=== PATIENT | female | born 1955 | race Caucasian/White ===

== ENCOUNTER 2019-10-22 15:03 | Outpatient (CLI) | payer OTHER | END 2019-10-22 23:59 | disposition home or self-care (01) | LOC: STAR 15:03 | PROVIDERS: ATTEND Anesthesiology | DX: Z01.818 Encounter for other preprocedural examination (principal); Z11.59 Encounter for screening for other viral diseases | CPT/HCPCS: 36415; 87635 ==

== ENCOUNTER 2019-10-25 11:49 | Day surgery (SDC) | payer OTHER ==
[~2019-10-25] VITALS: Ht 147.3 cm; Wt 55.1 kg
[2019-10-25] MEDS ORDERED: LACTATED RINGERS 1,000 ML IV SCH (12:35)
[2019-10-25] MEDS ORDERED: LOVA20TA2 PO (12:40)
[2019-10-25] MEDS ORDERED: METH40TA3 PO (12:40)
[2019-10-25] MEDS ORDERED: AMIT25TA PO (12:40)
[2019-10-25] MEDS ORDERED: ALPR0.5T6 PO (12:40)
[2019-10-25] MEDS ORDERED: LISI-170 PO (12:40)
[2019-10-25] MEDS ORDERED: GEMF600T8 PO (12:40)
[2019-10-25] MEDS ORDERED: OMEP40CA42 PO (12:40)
[2019-10-25] MEDS ORDERED: CHLORHEXIDINE 15 ML UDC MM ONE (13:00)
[2019-10-25 13:07] VITALS: BP 90/62
[2019-10-25 13:26] LABS: ALBUMIN 3.8 g/dL (3.4-5.0); ANION GAP 4 mmol/L (5-15); CHLORIDE 107 mmol/L (98-107)
[2019-10-25 13:33] LABS: ALANINE AMINOTRANSFERASE 21 U/L (12-78); ALKALINE PHOSPHATASE 117 U/L (45-117); BILIRUBIN,TOTAL 0.2 mg/dL (0.2-1.0); CREATININE 1.25 mg/dL (0.55-1.02); TOTAL PROTEIN 7.9 g/dL (6.4-8.2)
[2019-10-25] MEDS ORDERED: FENTANYL PF 100 MCG/2ML ONE ×2 (15:03→17:38)
[2019-10-25] MEDS ORDERED: MIDAZOLAM 1 MG/ML, 2ML ONE (15:03)
[2019-10-25] MEDS ORDERED: MEPERIDINE/PF 25MG/0.5ML IVPush PRN (15:30)
[2019-10-25] MEDS ORDERED: HYDROmorphone 1 MG/ML, 1ML INJ IVPush PRN (15:30)
[2019-10-25] MEDS ORDERED: PROMETHAZINE 25 MG/ML, 1ML IVPush PRN (15:30)
[2019-10-25] MEDS ORDERED: OXYcodone 5 MG/5 ML ORAL.SOL UDC PO PRN (15:30)
[2019-10-25] MEDS ORDERED: FENTANYL PF 100 MCG/2ML IV PRN (15:30)
[2019-10-25] MEDS ORDERED: SUGAMMADEX 200 MG/2 ML IVPush ONE (16:26)
[2019-10-25] MEDS ORDERED: ROCURONIUM 10 MG/ML,10ML ONE (16:26)
[2019-10-25] MEDS ORDERED: SUCCINYLCHOLINE 20 MG/ML, 10ML ONE (16:26)
[2019-10-25] MEDS ORDERED: ONDANSETRON 2MG/ML, 2ML ONE (16:26)
[2019-10-25] MEDS ORDERED: DEXAMETHASONE 4 MG/ML, 1ML ONE (16:26)
[2019-10-25] MEDS ORDERED: PROPOFOL 10 MG/ML, 20ML ONE (16:26)
[2019-10-25] MEDS ORDERED: INDOMETHACIN 50 MG SUPP.RECT ONE (17:39)
[2019-10-25] MEDS ORDERED: GLUCAGON 1 MG ONE (17:51)
== END 2019-10-25 19:00 | disposition home or self-care (01) ==
LOC: OUT 11:49
PROVIDERS: ATTEND Internal Medicine Gastroenterology
DX: R10.9 Unspecified abdominal pain (principal); K83.1 Obstruction of bile duct; K86.2 Cyst of pancreas; K31.89 Other diseases of stomach and duodenum; F32.9 Major depressive disorder, single episode, unspecified; E78.5 Hyperlipidemia, unspecified; I10 Essential (primary) hypertension; F41.9 Anxiety disorder, unspecified; F17.210 Nicotine dependence, cigarettes, uncomplicated; F15.90 Other stimulant use, unspecified, uncomplicated; Z88.1 Allergy status to other antibiotic agents; Z90.49 Acquired absence of other specified parts of digestive tract; Z98.890 Other specified postprocedural states; Z79.899 Other long term (current) drug therapy
CPT/HCPCS: 36415; 43262; 43274; 74328; 80053; 93005; C1769; C2625; J0330; J1100; J1610; J2250; J2405; J2704; J3010; J7120

== ENCOUNTER 2020-01-31 07:17 | Day surgery (SDC) | payer OTHER ==
[~2020-01-31] VITALS: Ht 147.3 cm; Wt 56.0 kg
[~2020-01-31 07:17] MED LIST: ALPR0.5T6 PO; AMIT25TA PO; GEMF600T8 PO; LISI-170 PO; LOVA20TA2 PO; METH40TA3 PO; OMEP40CA42 PO
[2020-01-31] MEDS ORDERED: CHLORHEXIDINE 15 ML UDC MM ONE (08:00)
[2020-01-31] MEDS ORDERED: LIDOCAINE-MPF 1%, 2ML INFIL ONE (08:00)
[2020-01-31] MEDS ORDERED: LACTATED RINGERS 1,000 ML IV SCH (08:00)
[2020-01-31 08:04] VITALS: BP 95/66
[2020-01-31 08:37] LABS: ALBUMIN 3.7 g/dL (3.4-5.0); ANION GAP 5 mmol/L (5-15); CALCIUM 9.9 mg/dL (8.5-10.1); CHLORIDE 106 mmol/L (98-107)
[2020-01-31 08:41] LABS: ALANINE AMINOTRANSFERASE 15 U/L (12-78); ALKALINE PHOSPHATASE 105 U/L (45-117); BILIRUBIN,TOTAL 0.2 mg/dL (0.2-1.0); CREATININE 1.18 mg/dL (0.55-1.02); TOTAL PROTEIN 7.6 g/dL (6.4-8.2)
[2020-01-31] MEDS ORDERED: PROPOFOL 50 ML ONE (09:47)
[2020-01-31] MEDS ORDERED: SUCCINYLCHOLINE 20 MG/ML, 10ML ONE (10:30)
[2020-01-31] MEDS ORDERED: OMNIPAQUE 350 MG/ML, 50 ML BOTTLE ONE (10:50)
[2020-01-31] MEDS ORDERED: FENTANYL PF 100 MCG/2ML IV PRN (11:30)
[2020-01-31] MEDS ORDERED: MEPERIDINE/PF 25MG/0.5ML IVPush PRN (11:30)
[2020-01-31] MEDS ORDERED: ACETAMINOPHEN 325 MG TABLET PO PRN (11:30)
[2020-01-31] MEDS ORDERED: DIAZEPAM 5 MG/ML, 2ML IVPush PRN (11:30)
[2020-01-31] MEDS ORDERED: ONDANSETRON 2MG/ML, 2ML IVPush PRN (11:30)
[2020-01-31] MEDS ORDERED: INDOMETHACIN 50 MG SUPP.RECT PR STA (11:48)
[2020-01-31] MEDS ORDERED: INDOMETHACIN 50 MG SUPP.RECT ONE (11:50)
[2020-01-31] MEDS ORDERED: PANTOPRAZOLE 40 MG IV IVPush ONE (12:00)
== END 2020-01-31 14:45 | disposition home or self-care (01) ==
LOC: OUT 07:17
PROVIDERS: ATTEND Internal Medicine Gastroenterology
DX: T85.528A Displacement of other gastrointestinal prosthetic devices, implants and grafts, initial encounter (principal); I10 Essential (primary) hypertension; E83.52 Hypercalcemia; E78.5 Hyperlipidemia, unspecified; F41.9 Anxiety disorder, unspecified; Z79.899 Other long term (current) drug therapy; Z88.1 Allergy status to other antibiotic agents; Z90.49 Acquired absence of other specified parts of digestive tract; Y83.8 Other surgical procedures as the cause of abnormal reaction of the patient, or of later complication, without mention of misadventure at the time of the procedure
CPT/HCPCS: 36415; 43275; 74018; 74330; 80053; 87635; 93005; C1769; C9113; J0330; J2704; J7120; Q9967

== ENCOUNTER 2020-01-31 19:49 | Inpatient (IN) | payer OTHER ==
[~2020-01-31] VITALS: Ht 147.3 cm; Wt 56.0 kg
[2020-01-31] MEDS ORDERED: SODIUM CHLORIDE FLUSH 10ML SYR IVF ONE (20:00)
[2020-01-31] MEDS ORDERED: ONDANSETRON 2MG/ML, 2ML IVPush ONE (20:00)
[2020-01-31] MEDS ORDERED: ONDANSETRON 2MG/ML, 2ML ONE (20:42)
[2020-01-31] MEDS ORDERED: MORPHINE SULFATE 4 MG/ML, 1ML ONE (20:42)
[2020-01-31 20:45] LABS: BASOPHILS % (AUTO) 0 % (0-1); EOSINOPHILS % (AUTO) 0 % (1-7); LYMPHOCYTES % (AUTO) 8 % (22-44); MEAN CORPUSCULAR HEMOGLOBIN 29.3 pg (27.0-34.8); MEAN CORPUSCULAR HGB CONC 32.1 g/dL (32.4-35.8); MEAN PLATELET VOLUME 7.7 fL (7.4-10.4); MONOCYTES % (AUTO) 6 % (2-9); NEUTROPHILS % (AUTO) 86 % (42-75); PLATELET COUNT 282 x10^3/uL (130-400); RED BLOOD COUNT 4.94 x10^6/uL (3.82-5.3); RED CELL DISTRIBUTION WIDTH 14.8 % (9.6-15.2)
[2020-01-31 20:51] LABS: MD NO
[2020-01-31 20:52] LABS: ANION GAP 5 mmol/L (5-15); CALCIUM 9.8 mg/dL (8.5-10.1); CHLORIDE 105 mmol/L (98-107); CREATININE 1.11 mg/dL (0.55-1.02)
[2020-01-31 20:53] LABS: ALANINE AMINOTRANSFERASE 19 U/L (12-78); ALBUMIN 3.8 g/dL (3.4-5.0)
[2020-01-31 20:55] LABS: ALKALINE PHOSPHATASE 113 U/L (45-117); BILIRUBIN,TOTAL 0.2 mg/dL (0.2-1.0); TOTAL PROTEIN 7.7 g/dL (6.4-8.2)
--- NOTE | 2020-01-31 21:27 | NUR ---
Multiple attempts by this RN for IV access with US machine. Secondary RN at bedside attempting IV access
--- NOTE | 2020-01-31 22:08 | NUR ---
Second and third RN to bedside to assist in gaining IV access, unable to establish PIV
[2020-01-31] MEDS ORDERED: SODIUM CHLORIDE 0.9% 1,000ML IVBOLUS ONE (22:30)
--- NOTE | 2020-01-31 23:36 | NUR ---
DR ADORNO AT BEDSIDE FOR CENTRAL LINE PLACEMENT AT THIS TIME
--- NOTE | 2020-02-01 00:09 | NUR ---
US at bedside
[2020-02-01] MEDS: MORPHINE SULFATE 4 MG/ML, 1ML IVPush PRN ×2 (00:10→01:04)
--- NOTE | 2020-02-01 00:15 | NUR ---
US at bedside. Delay d/t pt care needs. Provider aware
--- NOTE | 2020-02-01 00:57 | NUR ---
HOSPITALIST AT BEDSIDE FOR ADMIT AT THIS TIME
[2020-02-01] MEDS ORDERED: MORPHINE SULFATE 4 MG/ML, 1ML ONE ×3 (00:59→05:16)
--- NOTE | 2020-02-01 01:04 | NUR ---
PT C/O PAIN PT MEDICATED PER MAR FOR PAIN AT THIS TIME. PT TOLERATED WELL NADN
--- NOTE | 2020-02-01 01:21 | NUR ---
Ambulated to bathroom independently, steady gait
--- NOTE | 2020-02-01 01:50 | NUR ---
BREAK RN: PT RESTING ON BANG HAYNES AT THIS TIME
[2020-02-01] MEDS ORDERED: HEPARIN 5,000 UNITS/ML, 1ML ONE (01:56)
[2020-02-01] MEDS ORDERED: HYDROcodone/APAP 5/325 TABLET ONE ×2 (01:57→02:43)
[2020-02-01] MEDS ORDERED: SODIUM CHLORIDE 0.9% 1,000 ML IV SCH (02:00)
[2020-02-01] MEDS ORDERED: IBUPROFEN 600 MG TABLET PO PRN (02:00)
[2020-02-01] MEDS: HEPARIN 5,000 UNITS/ML, 1ML SQ SCH ×3 (02:02→20:23)
[2020-02-01] MEDS: HYDROcodone/APAP 5/325 TABLET PO PRN ×3 (02:02→20:23)
--- NOTE | 2020-02-01 02:03 | NUR ---
PT MEDICATED PER MAR FOR PAIN AT THIS TIME.
--- NOTE | 2020-02-01 02:49 | NUR ---
PT MEDICATED PER MAR FOR PAIN AT THIS TIME
[2020-02-01] MEDS ORDERED: ONDANSETRON 2MG/ML, 2ML ONE (04:30)
[2020-02-01] MEDS: morphine SULFATE 10 MG/ML, 1ML IVPush PRN ×4 (04:43→23:05)
[2020-02-01] MEDS: ONDANSETRON 2MG/ML, 2ML IVPush PRN ×2 (04:44→20:22)
--- NOTE | 2020-02-01 05:26 | NUR ---
Pt continues to c/o 12/28 abd pain. Unable to admin additional pain meds at this time. Voicemail left with MD Murphy
[2020-02-01] MEDS ORDERED: HYDROmorphone 2 MG/ML, 1ML IVPush ONE (06:00)
[2020-02-01] MEDS ORDERED: HYDROmorphone 2 MG/ML, 1ML ONE ×2 (06:06→08:32)
[2020-02-01 07:10] LABS: BASOPHILS % (AUTO) 1 % (0-1); EOSINOPHILS % (AUTO) 0 % (1-7); LYMPHOCYTES % (AUTO) 13 % (22-44); MEAN CORPUSCULAR HEMOGLOBIN 29.7 pg (27.0-34.8); MEAN CORPUSCULAR HGB CONC 32.6 g/dL (32.4-35.8); MEAN PLATELET VOLUME 7.5 fL (7.4-10.4); MONOCYTES % (AUTO) 5 % (2-9); NEUTROPHILS % (AUTO) 81 % (42-75); PLATELET COUNT 262 x10^3/uL (130-400); RED BLOOD COUNT 5.01 x10^6/uL (3.82-5.3); RED CELL DISTRIBUTION WIDTH 14.8 % (9.6-15.2)
[2020-02-01 07:20] LABS: ALANINE AMINOTRANSFERASE 14 U/L (12-78); ALBUMIN 3.1 g/dL (3.4-5.0); ANION GAP 8 mmol/L (5-15); CHLORIDE 109 mmol/L (98-107); CREATININE 0.96 mg/dL (0.55-1.02); MD NO
[2020-02-01 07:23] LABS: ALKALINE PHOSPHATASE 86 U/L (45-117); BILIRUBIN,TOTAL 0.4 mg/dL (0.2-1.0); TOTAL PROTEIN 6.6 g/dL (6.4-8.2)
[2020-02-01] MEDS ORDERED: LISINOPRIL 20 MG TABLET ONE (07:43)
[2020-02-01] MEDS ORDERED: NICOTINE 14MG/24 HR PATCH.TD24 ONE (07:44)
--- NOTE | 2020-02-01 07:53 | NUR ---
PT CONTINUES TO CALL FOR PAIN MEDICATION, DISSCUSSED WITH PT, WILL BE CALLED AND HAS ALREADY HAD MESSAGE LEFT FOR ORDERS FOR PAIN CONTROL. VSS Addendum: 02/01/20 at 0756 by ALMA DELIA ORDERS NOW RECIEVED, AWAITING PHARM VERIFICATION
[2020-02-01] MEDS ORDERED: HYDROmorphone 1 MG/ML, 1ML INJ IV PRN (08:00)
[2020-02-01] MEDS ORDERED: MAGNESIUM SULFATE PMX 2GM/50ML 50 ML IV ONE (08:00)
[2020-02-01] MEDS: GEMFIBROZIL 600 MG TABLET PO SCH (09:15)
[2020-02-01] MEDS: LISINOPRIL 20 MG TABLET PO SCH (09:15)
[2020-02-01] MEDS: OMEPRAZOLE 20 MG CAPSULE.DR PO SCH (09:18)
[2020-02-01] MEDS: NICOTINE 14MG/24 HR PATCH.TD24 TD SCH (09:18)
[2020-02-01] MEDS: METHADONE INTENSOL 10 MG/ML ORAL CONC PO SCH (09:18)
--- NOTE | 2020-02-01 09:20 | NUR ---
PT ASSISTED WITH BEDPAN USE, PT MEDICATED PER MAR, VSS, GIVEN BLANKETS FOR COMFORT.
[2020-02-01] MEDS ORDERED: MAGNESIUM SULFATE PMX 2GM/50ML 50 ML ONE (12:23)
--- NOTE | 2020-02-01 14:00 | NUR ---
UPDATED ON POC PER PT REQUEST. MANNY HARRIS IN TO EVAL PT.
--- NOTE | 2020-02-01 16:01 | NUR ---
PT RESTING ON GURNANCY, VSS, NAD NOTED AT THIS TIME.
--- NOTE | 2020-02-01 17:15 | NUR ---
REPORT GIVEN TO JACKY CUELLAR FOR ROOM 441
--- NOTE | 2020-02-01 17:29 | NUR ---
REPORT TO RECIEVING RN
[2020-02-01] MEDS: SODIUM CHLORIDE 0.9% 1,000 ML IV SCH ×2 (18:23→23:04)
[2020-02-01 19:00] VITALS: BP 100/66
[2020-02-01] MEDS: AMITRIPTYLINE 25 MG TABLET PO SCH (20:22)
[2020-02-01] MEDS ORDERED: LOVASTATIN 20 MG TABLET PO SCH (21:00)
[2020-02-02 00:35] VITALS: BP 94/62
[2020-02-02] MEDS: morphine SULFATE 10 MG/ML, 1ML IVPush PRN ×2 (03:54→08:07)
[2020-02-02] MEDS: ONDANSETRON 2MG/ML, 2ML IVPush PRN (03:54)
[2020-02-02] MEDS: SODIUM CHLORIDE 0.9% 1,000 ML IV SCH ×3 (03:55→12:59)
[2020-02-02 05:15] LABS: ANION GAP 8 mmol/L (5-15); CALCIUM 7.7 mg/dL (8.5-10.1); CHLORIDE 114 mmol/L (98-107)
[2020-02-02 05:20] LABS: CHOL/HDL RATIO 3.1; CHOLESTEROL, TOTAL 95 mg/dL (140-239); CREATININE 0.86 mg/dL (0.55-1.02); HDL CHOL % 33 % (28-40); HDL CHOLESTEROL (DIRECT) 31 mg/dL (40-60); LDL CHOLESTEROL,CALCULATED 36 mg/dL (54-169); LDL/HDL RATIO 1.2 (0.5-3.0); TRIGLYCERIDES 139 mg/dL (50-200); VLDL CHOLESTEROL 28 mg/dL (0-25)
[2020-02-02 05:24] LABS: BASOPHILS % (AUTO) 0 % (0-1); EOSINOPHILS % (AUTO) 0 % (1-7); LYMPHOCYTES % (AUTO) 18 % (22-44); MEAN CORPUSCULAR HEMOGLOBIN 29.7 pg (27.0-34.8); MEAN PLATELET VOLUME 7.8 fL (7.4-10.4); MONOCYTES % (AUTO) 5 % (2-9); NEUTROPHILS % (AUTO) 77 % (42-75); PLATELET COUNT 229 x10^3/uL (130-400); RED BLOOD COUNT 4.41 x10^6/uL (3.82-5.3); RED CELL DISTRIBUTION WIDTH 15.1 % (9.6-15.2)
[2020-02-02 05:38] LABS: MD NO
[2020-02-02] MEDS: HEPARIN 5,000 UNITS/ML, 1ML SQ SCH ×3 (05:47→20:16)
[2020-02-02] MEDS ORDERED: METHADONE 5 MG TABLET ONE (07:57)
[2020-02-02] MEDS ORDERED: METHADONE 10 MG TABLET ONE (07:58)
[2020-02-02] MEDS: GEMFIBROZIL 600 MG TABLET PO SCH (08:04)
[2020-02-02] MEDS: OMEPRAZOLE 20 MG CAPSULE.DR PO SCH (08:04)
[2020-02-02] MEDS: LISINOPRIL 20 MG TABLET PO SCH (08:05)
[2020-02-02] MEDS: NICOTINE 14MG/24 HR PATCH.TD24 TD SCH (08:06)
[2020-02-02] MEDS: METHADONE INTENSOL 10 MG/ML ORAL CONC PO SCH (08:08)
[2020-02-02 08:54] VITALS: BP 89/60
[2020-02-02] MEDS ORDERED: NALOXONE 0.4 MG/ML, 1ML IVPush ONE (13:30)
[2020-02-02] MEDS ORDERED: SODIUM CHLORIDE 0.9%, 500ML IVBOLUS ONE (13:30)
[2020-02-02] MEDS ORDERED: NALOXONE 1 MG/ML, 2ML ONE (13:42)
[2020-02-02 14:15] LABS: BASOPHILS % (AUTO) 0 % (0-1); EOSINOPHILS % (AUTO) 0 % (1-7); LYMPHOCYTES % (AUTO) 19 % (22-44); MEAN CORPUSCULAR HEMOGLOBIN 29.5 pg (27.0-34.8); MEAN CORPUSCULAR HGB CONC 32.2 g/dL (32.4-35.8); MEAN PLATELET VOLUME 7.9 fL (7.4-10.4); MONOCYTES % (AUTO) 4 % (2-9); NEUTROPHILS % (AUTO) 77 % (42-75); PLATELET COUNT 266 x10^3/uL (130-400); RED BLOOD COUNT 4.45 x10^6/uL (3.82-5.3); RED CELL DISTRIBUTION WIDTH 14.9 % (9.6-15.2)
[2020-02-02 14:19] LABS: MD NO
[2020-02-02 14:25] LABS: ALANINE AMINOTRANSFERASE 13 U/L (12-78); ALBUMIN 2.1 g/dL (3.4-5.0); ANION GAP 7 mmol/L (5-15); CALCIUM 8.2 mg/dL (8.5-10.1); CHLORIDE 112 mmol/L (98-107); CREATININE 1.23 mg/dL (0.55-1.02); INTERNATIONAL NORMALIZED RATIO 1.15 (0.93-1.1); PROTHROMBIN TIME 12.2 Seconds (9.6-11.5)
[2020-02-02 14:29] LABS: ALKALINE PHOSPHATASE 61 U/L (45-117); BILIRUBIN,TOTAL 0.5 mg/dL (0.2-1.0); TROPONIN I < 0.015 ng/mL (0.000-0.045)
[2020-02-02] MEDS ORDERED: LACTATED RINGERS 1,000 ML IV SCH (14:30)
[2020-02-02] MEDS ORDERED: LACTATED RINGERS 1,000 ML IVBOLUS ONE (14:30)
[2020-02-02] MEDS ORDERED: PROPOFOL 100 ML IV PRN (15:00)
[2020-02-02] MEDS: MEROPENEM 1 GM in SODIUM CHLORIDE 0.9% 100 ML IV SCH ×2 (15:07→22:34)
[2020-02-02] MEDS ORDERED: BISACODYL 10 MG SUPP PR PRN (16:30)
[2020-02-02] MEDS ORDERED: SENNA/DOCUSATE TABLET NG PRN (16:30)
[2020-02-02] MEDS ORDERED: LIDOCAINE-MPF 1%, 2ML ENDO PRN (16:30)
[2020-02-02] MEDS ORDERED: LACTULOSE 20 GM/30 ML UDC NG PRN (16:30)
[2020-02-02] MEDS ORDERED: SENNA 176 MG/5 ML ORAL SOL NG PRN (16:30)
[2020-02-02] MEDS ORDERED: PHARMACY MAY ADJ FOR RENAL FX MC SCH (16:30)
--- NOTE | 2020-02-02 16:48 | NUR ---
TF goal if needed: Promote w/ end goal rate @45mL/hr (on propofol) or 55mL/hr (off propofol). Addendum: 02/02/20 at [address] Amended: Links added.
[2020-02-02] MEDS ORDERED: OMNIPAQUE 350 MG/ML, 100ML BOTTLE ONE (17:54)
[2020-02-02] MEDS: SODIUM BICARBONATE 8.4% 150 MEQ in DEXTROSE 5% 1,000 ML IV SCH (17:56)
[2020-02-02] MEDS ORDERED: SUCCINYLCHOLINE 20 MG/ML, 10ML ONE (18:39)
[2020-02-02] MEDS ORDERED: ETOMIDATE 20 MG/10 ML ONE (18:39)
[2020-02-02] MEDS ORDERED: PROPOFOL 10 MG/ML, 100ML IV ONE (18:39)
[2020-02-02] MEDS ORDERED: ROCURONIUM 10MG/ML,5ML ONE (18:39)
[2020-02-02] MEDS ORDERED: SODIUM CHLORIDE 0.9% 1,000ML IVBOLUS ONE (19:00)
[2020-02-02 20:00] VITALS: BP 107/58
[2020-02-02] MEDS: FENTANYL PF 1,000 MCG in SODIUM CHLORIDE 0.9% 80 ML IV PRN (20:06)
[2020-02-02] MEDS ORDERED: AMITRIPTYLINE 75 MG TABLET ONE (20:07)
[2020-02-02] MEDS: AMITRIPTYLINE 25 MG TABLET PO SCH (20:16)
[2020-02-02] MEDS: NOREPINEPHRINE 8 MG in SODIUM CHLORIDE 0.9% 242 ML IV PRN (21:36)
[2020-02-02] MEDS: ACETAMINOPHEN 325 MG TABLET PO PRN (22:50)
[2020-02-03] MEDS: SODIUM BICARBONATE 8.4% 150 MEQ in DEXTROSE 5% 1,000 ML IV SCH (01:00)
[2020-02-03 01:10] LABS: MICROSCOPIC AUTO
[2020-02-03 02:02] VITALS: BP 85/45
[2020-02-03 03:26] LABS: ALANINE AMINOTRANSFERASE 12 U/L (12-78); ALBUMIN 1.6 g/dL (3.4-5.0); ANION GAP 5 mmol/L (5-15); CALCIUM 7.4 mg/dL (8.5-10.1); CHLORIDE 109 mmol/L (98-107); CREATININE 1.02 mg/dL (0.55-1.02)
[2020-02-03 03:28] LABS: ALKALINE PHOSPHATASE 63 U/L (45-117); BILIRUBIN,TOTAL 0.2 mg/dL (0.2-1.0); TOTAL PROTEIN 4.8 g/dL (6.4-8.2)
[2020-02-03 03:31] LABS: MEAN CORPUSCULAR HEMOGLOBIN 29.8 pg (27.0-34.8); MEAN CORPUSCULAR HGB CONC 32.6 g/dL (32.4-35.8); PLATELET COUNT 234 x10^3/uL (130-400)
[2020-02-03 04:40] LABS: MD YES
[2020-02-03 04:42] LABS: ANISOCYTOSIS 1+; BAND#(MANUAL) 0.26 x10^3/uL; BANDS%(MANUAL) 6 % (0-7); EOS#(MANUAL) 0.39 x10^3/uL (0.0-0.4); EOS% (MANUAL) 9 % (1-7); LYMPH#(MANUAL) 0.86 x10^3/uL (1-3.4); LYMPHS% (MANUAL) 20 % (22-44); METAMYELOCYTES# (MANUAL) 0.13 x10^3/uL (0-0); METAMYELOCYTES% (MANUAL) 3 % (0-1); MONOS#(MANUAL) 0.13 x10^3/uL (0.3-2.7); MONOS% (MANUAL) 3 % (2-9); MYELOCYTES# (MANUAL) 0.09 x10^3/uL (0-0); MYELOCYTES% (MANUAL) 2 % (0-0); REACTIVE LYMPHS # (MANUAL) 0.22 x10^3/uL (0-0); REACTIVE LYMPHS % (MANUAL) 5 % (0-0); SEG#(MANUAL) 2.24 x10^3/uL (1.8-6.8); SEGS% (MANUAL) 52 % (42-75)
[2020-02-03 04:43] LABS: BASOPHILLIC STIPPLING 1+; PMNS WITH VACUOLES 1+; POLYCHROMASIA 1+
[2020-02-03 04:44] LABS: <PLATELET ESTIMATE> ADEQUATE; <PLT MORPHOLOGY> NORMAL PLT MORPH; TEAR DROPS 1+
[2020-02-03] MEDS: HEPARIN 5,000 UNITS/ML, 1ML SQ SCH (04:53)
[2020-02-03] MEDS: MEROPENEM 1 GM in SODIUM CHLORIDE 0.9% 100 ML IV SCH ×3 (06:06→21:08)
[2020-02-03] MEDS ORDERED: MAGNESIUM SULFATE PMX 2GM/50ML 50 ML ONE (06:41)
[2020-02-03] MEDS ORDERED: D5%-LACTATED RINGERS 1,000 ML IV SCH (07:00)
[2020-02-03] MEDS: D5%-LACTATED RINGERS 1,000 ML IV SCH ×2 (07:00→18:03)
[2020-02-03] MEDS ORDERED: MAGNESIUM SULFATE PMX 2GM/50ML 50 ML IV ONE (07:00)
[2020-02-03] MEDS: ENOXAPARIN 40 MG/0.4 ML SQ SCH (08:13)
[2020-02-03] MEDS: POTASSIUM CHLORIDE 10% 40 MEQ/30 ML UDC PO SCH ×2 (08:13→21:08)
[2020-02-03] MEDS: ALBUMIN HUMAN 25% 100 ML IV SCH ×2 (08:13→15:50)
[2020-02-03] MEDS: FENTANYL PF 1,000 MCG in SODIUM CHLORIDE 0.9% 80 ML IV PRN (08:14)
[2020-02-03] MEDS: NOREPINEPHRINE 8 MG in SODIUM CHLORIDE 0.9% 242 ML IV PRN ×3 (08:14→17:37)
[2020-02-03] MEDS: ACETAMINOPHEN 325 MG TABLET PO PRN ×2 (11:46→21:33)
[2020-02-03] MEDS: AMITRIPTYLINE 25 MG TABLET PO SCH (21:08)
[2020-02-04] MEDS: ALBUMIN HUMAN 25% 100 ML IV SCH ×3 (00:26→16:32)
[2020-02-04] MEDS: NOREPINEPHRINE 8 MG in SODIUM CHLORIDE 0.9% 242 ML IV PRN (02:29)
[2020-02-04] MEDS: FENTANYL PF 1,000 MCG in SODIUM CHLORIDE 0.9% 80 ML IV PRN ×2 (04:05→20:38)
[2020-02-04 04:21] LABS: MEAN CORPUSCULAR HEMOGLOBIN 29.6 pg (27.0-34.8); MEAN CORPUSCULAR HGB CONC 32.7 g/dL (32.4-35.8); MEAN PLATELET VOLUME 7.5 fL (7.4-10.4); PLATELET COUNT 197 x10^3/uL (130-400); RED BLOOD COUNT 3.19 x10^6/uL (3.82-5.3); RED CELL DISTRIBUTION WIDTH 14.9 % (9.6-15.2)
[2020-02-04 04:33] LABS: ANION GAP 3 mmol/L (5-15); CALCIUM 7.9 mg/dL (8.5-10.1); CHLORIDE 111 mmol/L (98-107); CREATININE 0.84 mg/dL (0.55-1.02)
[2020-02-04 05:05] VITALS: BP 146/84
[2020-02-04 05:43] LABS: MD YES
[2020-02-04 05:46] LABS: <PLATELET ESTIMATE> ADEQUATE; <PLT MORPHOLOGY> NORMAL PLT MORPH; <RBC MORPHOLOGY> NORMAL; BAND#(MANUAL) 0.58 x10^3/uL; BANDS%(MANUAL) 7 % (0-7); BASOS#(MANUAL) 0.08 x10^3/uL (0-0.1); BASOS% (MANUAL) 1 % (0-1); LYMPH#(MANUAL) 0.91 x10^3/uL (1-3.4); LYMPHS% (MANUAL) 11 % (22-44); MONOS% (MANUAL) 6 % (2-9); MYELOCYTES# (MANUAL) 0.08 x10^3/uL (0-0); MYELOCYTES% (MANUAL) 1 % (0-0); SEG#(MANUAL) 6.14 x10^3/uL (1.8-6.8); SEGS% (MANUAL) 74 % (42-75)
[2020-02-04] MEDS: MEROPENEM 1 GM in SODIUM CHLORIDE 0.9% 100 ML IV SCH ×3 (05:52→21:55)
[2020-02-04] MEDS: ENOXAPARIN 40 MG/0.4 ML SQ SCH (08:33)
[2020-02-04] MEDS: PANTOPRAZOLE 40 MG IV IVPush SCH (08:33)
[2020-02-04] MEDS: D5%-LACTATED RINGERS 1,000 ML IV SCH ×2 (16:32→21:25)
[2020-02-04] MEDS: AMITRIPTYLINE 25 MG TABLET PO SCH (21:25)
[2020-02-04] MEDS: ACETAMINOPHEN 325 MG TABLET PO PRN (21:25)
[2020-02-05] MEDS: ALBUMIN HUMAN 25% 100 ML IV SCH ×3 (00:38→16:06)
[2020-02-05 05:00] LABS: BASOPHILS % (AUTO) 0 % (0-1); EOSINOPHILS % (AUTO) 1 % (1-7); LYMPHOCYTES % (AUTO) 9 % (22-44); MEAN CORPUSCULAR HEMOGLOBIN 29.9 pg (27.0-34.8); MEAN CORPUSCULAR HGB CONC 32.8 g/dL (32.4-35.8); MEAN PLATELET VOLUME 7.4 fL (7.4-10.4); MONOCYTES % (AUTO) 7 % (2-9); NEUTROPHILS % (AUTO) 84 % (42-75); PLATELET COUNT 185 x10^3/uL (130-400); RED BLOOD COUNT 2.94 x10^6/uL (3.82-5.3); RED CELL DISTRIBUTION WIDTH 15.5 % (9.6-15.2)
[2020-02-05 05:05] LABS: ANION GAP 3 mmol/L (5-15); CALCIUM 8.6 mg/dL (8.5-10.1); CHLORIDE 112 mmol/L (98-107); CREATININE 0.74 mg/dL (0.55-1.02); TRIGLYCERIDES 294 mg/dL (50-200)
[2020-02-05 05:06] VITALS: BP 124/78
[2020-02-05 05:39] LABS: MD SCAN
[2020-02-05] MEDS: PANTOPRAZOLE 40 MG IV IVPush SCH (06:26)
[2020-02-05] MEDS: MEROPENEM 1 GM in SODIUM CHLORIDE 0.9% 100 ML IV SCH ×3 (06:26→21:57)
[2020-02-05] MEDS: FENTANYL PF 1,000 MCG in SODIUM CHLORIDE 0.9% 80 ML IV PRN ×2 (06:50→18:10)
[2020-02-05] MEDS: ENOXAPARIN 40 MG/0.4 ML SQ SCH (07:39)
[2020-02-05] MEDS: D5%-LACTATED RINGERS 1,000 ML IV SCH (10:39)
[2020-02-05] MEDS ORDERED: LORazepam 2 MG/ML, 1ML IVPush ONE (11:00)
[2020-02-05] MEDS: morphine SULFATE 10 MG/ML, 1ML IVPush PRN (16:07)
[2020-02-05] MEDS: ACETAMINOPHEN 325 MG TABLET NG PRN ×2 (16:15→21:56)
[2020-02-05] MEDS: AMITRIPTYLINE 25 MG TABLET PO SCH (21:57)
[2020-02-06] MEDS: ALBUMIN HUMAN 25% 100 ML IV SCH (00:04)
[2020-02-06] MEDS: D5%-LACTATED RINGERS 1,000 ML IV SCH ×2 (00:05→13:31)
[2020-02-06] MEDS: FENTANYL PF 1,000 MCG in SODIUM CHLORIDE 0.9% 80 ML IV PRN ×2 (02:00→10:17)
[2020-02-06] MEDS: ACETAMINOPHEN 325 MG TABLET NG PRN (03:20)
[2020-02-06] MEDS ORDERED: DEXMEDETOMIDINE 200 MCG in SODIUM CHLORIDE 0.9% 48 ML IV PRN (04:00)
[2020-02-06] MEDS ORDERED: HYDROmorphone 2 MG/ML, 1ML IVPush ONE (04:00)
[2020-02-06 04:56] LABS: MEAN CORPUSCULAR HEMOGLOBIN 29.3 pg (27.0-34.8); MEAN CORPUSCULAR HGB CONC 32.8 g/dL (32.4-35.8); MEAN PLATELET VOLUME 7.6 fL (7.4-10.4); PLATELET COUNT 162 x10^3/uL (130-400); RED BLOOD COUNT 2.62 x10^6/uL (3.82-5.3); RED CELL DISTRIBUTION WIDTH 15.3 % (9.6-15.2)
[2020-02-06 05:00] VITALS: BP 117/70
[2020-02-06 05:52] LABS: MD YES
[2020-02-06 05:54] LABS: ANISOCYTOSIS 1+; BAND#(MANUAL) 0.49 x10^3/uL; BANDS%(MANUAL) 4 % (0-7); LYMPH#(MANUAL) 1.11 x10^3/uL (1-3.4); LYMPHS% (MANUAL) 9 % (22-44); MONOS#(MANUAL) 0.37 x10^3/uL (0.3-2.7); MONOS% (MANUAL) 3 % (2-9); MYELOCYTES# (MANUAL) 0.12 x10^3/uL (0-0); MYELOCYTES% (MANUAL) 1 % (0-0); SEG#(MANUAL) 10.21 x10^3/uL (1.8-6.8); SEGS% (MANUAL) 83 % (42-75)
[2020-02-06 05:55] LABS: <PLATELET ESTIMATE> ADEQUATE; <PLT MORPHOLOGY> NORMAL PLT MORPH; OVALOCYTES 1+; TARGET CELLS 1+
[2020-02-06 05:58] LABS: ANION GAP 5 mmol/L (5-15); CALCIUM 8.3 mg/dL (8.5-10.1); CHLORIDE 111 mmol/L (98-107)
[2020-02-06] MEDS: PANTOPRAZOLE 40 MG IV IVPush SCH (06:24)
[2020-02-06] MEDS: MEROPENEM 1 GM in SODIUM CHLORIDE 0.9% 100 ML IV SCH ×3 (06:24→21:46)
[2020-02-06] MEDS: ENOXAPARIN 40 MG/0.4 ML SQ SCH (08:56)
[2020-02-06 09:32] LABS: ALANINE AMINOTRANSFERASE 7 U/L (12-78); ALBUMIN 3.4 g/dL (3.4-5.0); ALKALINE PHOSPHATASE 64 U/L (45-117); BILIRUBIN,TOTAL 1.1 mg/dL (0.2-1.0); TOTAL PROTEIN 5.9 g/dL (6.4-8.2)
[2020-02-06] MEDS ORDERED: MAGNESIUM SULFATE PMX 2GM/50ML 50 ML IV ONE (10:00)
[2020-02-06] MEDS ORDERED: TPN PER PHARMACY MC PRN (10:00)
[2020-02-06] MEDS ORDERED: POTASSIUM CHLORIDE 40 MEQ in SODIUM CHLORIDE 0.9% 100 ML IV ONE (13:00)
[2020-02-06] MEDS ORDERED: NS + 40MEQ KCL 1,000 ML IV SCH (13:00)
[2020-02-06] MEDS ORDERED: FAT EMUL IV SCH (17:00)
[2020-02-06] MEDS ORDERED: DEXTROSE 50%, 50ML SYRINGE IVPush PRN (17:00)
[2020-02-06] MEDS ORDERED: [UNRECOGNIZED DRUG - OTHER] IV SCH (17:00)
[2020-02-06] MEDS ORDERED: SMOF TPN IV SCH (17:00)
[2020-02-06] MEDS ORDERED: FILTER, DISP 1.2 MICRON FOR TPN/PVN IV PRN (17:00)
[2020-02-06] MEDS ORDERED: DEXTROSE 10% 500 ML IV PRN (17:00)
[2020-02-06] MEDS ORDERED: DEXTROSE 70% IV SCH (17:00)
[2020-02-06] MEDS ORDERED: AMINO ACID 10% IV SCH (17:00)
[2020-02-06] MEDS: FENTANYL PF 2,500 MCG in SODIUM CHLORIDE 0.9% 200 ML IV SCH (18:07)
[2020-02-06] MEDS: ACETAMINOPHEN 650 MG SUPP PR PRN (19:30)
[2020-02-06] MEDS: morphine SULFATE 10 MG/ML, 1ML IVPush PRN (19:58)
[2020-02-06] MEDS: INSULIN REGULAR MEDIUM DOSE Q6H X 48HRS SQ-INSULIN SCH (20:04)
[2020-02-07] MEDS: ACETAMINOPHEN 650 MG SUPP PR PRN ×2 (00:20→20:39)
[2020-02-07] MEDS: INSULIN REGULAR MEDIUM DOSE Q6H X 48HRS SQ-INSULIN SCH ×4 (03:15→20:41)
[2020-02-07] MEDS: D5%-LACTATED RINGERS 1,000 ML IV SCH (03:15)
[2020-02-07 03:50] LABS: BASOPHILS % (AUTO) 0 % (0-1); EOSINOPHILS % (AUTO) 1 % (1-7); LYMPHOCYTES % (AUTO) 6 % (22-44); MEAN CORPUSCULAR HEMOGLOBIN 28.9 pg (27.0-34.8); MEAN CORPUSCULAR HGB CONC 32.2 g/dL (32.4-35.8); MEAN PLATELET VOLUME 7.9 fL (7.4-10.4); MONOCYTES % (AUTO) 6 % (2-9); NEUTROPHILS % (AUTO) 88 % (42-75); PLATELET COUNT 167 x10^3/uL (130-400); RED BLOOD COUNT 2.85 x10^6/uL (3.82-5.3); RED CELL DISTRIBUTION WIDTH 15.7 % (9.6-15.2)
[2020-02-07 03:59] LABS: ANION GAP 4 mmol/L (5-15); CALCIUM 8.2 mg/dL (8.5-10.1); CHLORIDE 110 mmol/L (98-107)
[2020-02-07 04:00] LABS: ALANINE AMINOTRANSFERASE 10 U/L (12-78); ALBUMIN 2.7 g/dL (3.4-5.0); ALKALINE PHOSPHATASE 75 U/L (45-117); BILIRUBIN,TOTAL 1.1 mg/dL (0.2-1.0); CREATININE 0.61 mg/dL (0.55-1.02); PREALBUMIN 5.4 mg/dL (20.0-40.0); TOTAL PROTEIN 5.5 g/dL (6.4-8.2)
[2020-02-07 04:24] LABS: MD SCAN
[2020-02-07] MEDS: morphine SULFATE 10 MG/ML, 1ML IVPush PRN (05:13)
[2020-02-07] MEDS: PANTOPRAZOLE 40 MG IV IVPush SCH (05:13)
[2020-02-07] MEDS: MEROPENEM 1 GM in SODIUM CHLORIDE 0.9% 100 ML IV SCH (05:54)
[2020-02-07] MEDS: ONDANSETRON 2MG/ML, 2ML IVPush PRN (09:27)
[2020-02-07] MEDS ORDERED: POTASSIUM PHOSPHATE 44 MEQ in SODIUM CHLORIDE 0.9% 500 ML IV SCH (09:30)
[2020-02-07] MEDS ORDERED: SODIUM CHLORIDE 0.9% 1,000 ML IV SCH (09:30)
[2020-02-07] MEDS ORDERED: FUROSEMIDE 40 MG/4 ML IV ONE (10:30)
[2020-02-07] MEDS: HYDROmorphone 1 MG/ML, 1ML INJ IV PRN ×2 (10:41→20:42)
[2020-02-07] MEDS ORDERED: OMNIPAQUE 350 MG/ML, 100ML BOTTLE ONE (10:54)
[2020-02-07] MEDS ORDERED: VANCOMYCIN PER PHARMACY MC PRN (12:00)
[2020-02-07] MEDS ORDERED: PHARMACOKINETIC CONSULTATION MC ONE ×2 (12:00)
[2020-02-07] MEDS ORDERED: VANCOMYCIN PMX 1GM/200ML 200 ML IV ONE (12:00)
[2020-02-07] MEDS ORDERED: VANCOMYCIN 1,600 MG in SODIUM CHLORIDE 0.9% 250 ML IV ONE (12:00)
[2020-02-07] MEDS: PIPERACILLIN/TAZO/PMX 3.375GM 50 ML IV SCH ×2 (14:31→20:39)
[2020-02-07] MEDS: FENTANYL PF 2,500 MCG in SODIUM CHLORIDE 0.9% 200 ML IV SCH (14:33)
[2020-02-07 16:54] LABS: MICROSCOPIC INDICATED
[2020-02-07] MEDS ORDERED: AMINO ACID 10% IV SCH (17:00)
[2020-02-07] MEDS ORDERED: SMOF TPN IV SCH (17:00)
[2020-02-07] MEDS ORDERED: DEXTROSE 70% IV SCH (17:00)
[2020-02-07] MEDS ORDERED: FAT EMUL IV SCH (17:00)
[2020-02-07] MEDS ORDERED: [UNRECOGNIZED DRUG - OTHER] IV SCH (17:00)
[2020-02-07] MEDS ORDERED: FILTER, DISP 1.2 MICRON FOR TPN/PVN IV PRN (17:00)
[2020-02-08] MEDS: ACETAMINOPHEN 650 MG SUPP PR PRN (00:54)
[2020-02-08] MEDS: VANCOMYCIN 1,300 MG in SODIUM CHLORIDE 0.9% 250 ML IV SCH ×2 (00:58→13:37)
[2020-02-08] MEDS: HYDROmorphone 1 MG/ML, 1ML INJ IV PRN ×5 (01:49→20:45)
[2020-02-08] MEDS: PIPERACILLIN/TAZO/PMX 3.375GM 50 ML IV SCH ×4 (02:38→20:32)
[2020-02-08] MEDS: INSULIN REGULAR MEDIUM DOSE Q6H X 48HRS SQ-INSULIN SCH ×2 (05:02→09:01)
[2020-02-08 05:04] LABS: BASOPHILS % (AUTO) 0 % (0-1); EOSINOPHILS % (AUTO) 1 % (1-7); LYMPHOCYTES % (AUTO) 6 % (22-44); MEAN CORPUSCULAR HEMOGLOBIN 29.4 pg (27.0-34.8); MEAN CORPUSCULAR HGB CONC 32.7 g/dL (32.4-35.8); MEAN PLATELET VOLUME 8.8 fL (7.4-10.4); MONOCYTES % (AUTO) 6 % (2-9); NEUTROPHILS % (AUTO) 87 % (42-75); PLATELET COUNT 149 x10^3/uL (130-400); RED BLOOD COUNT 2.63 x10^6/uL (3.82-5.3); RED CELL DISTRIBUTION WIDTH 15.8 % (9.6-15.2)
[2020-02-08 05:15] LABS: ALANINE AMINOTRANSFERASE 9 U/L (12-78); ALBUMIN 2.2 g/dL (3.4-5.0); ALKALINE PHOSPHATASE 71 U/L (45-117); ANION GAP 4 mmol/L (5-15); BILIRUBIN,TOTAL 0.8 mg/dL (0.2-1.0); CALCIUM 8.2 mg/dL (8.5-10.1); CHLORIDE 106 mmol/L (98-107); TOTAL PROTEIN 5.1 g/dL (6.4-8.2); TRIGLYCERIDES 237 mg/dL (50-200)
[2020-02-08] MEDS: PANTOPRAZOLE 40 MG IV IVPush SCH ×2 (06:02→06:11)
[2020-02-08 06:29] LABS: MD SCAN
[2020-02-08] MEDS: FENTANYL PF 2,500 MCG in SODIUM CHLORIDE 0.9% 200 ML IV SCH (07:40)
[2020-02-08] MEDS ORDERED: FUROSEMIDE 40 MG/4 ML IV ONE (09:30)
[2020-02-08] MEDS: ACETAMINOPHEN 650 MG/20.3 ML UDC PO/NG PRN ×3 (10:16→21:05)
[2020-02-08] MEDS ORDERED: VANCOMYCIN 1,300 MG in SODIUM CHLORIDE 0.9% 250 ML IV SCH (12:00)
[2020-02-08] MEDS: morphine SULFATE 10 MG/ML, 1ML IVPush PRN ×2 (13:23→23:09)
[2020-02-08] MEDS ORDERED: SODIUM CHLORIDE 0.9% 1,000 ML IV SCH (15:30)
[2020-02-08] MEDS ORDERED: [UNRECOGNIZED DRUG - OTHER] IV SCH (17:00)
[2020-02-08] MEDS ORDERED: DEXTROSE 70% IV SCH (17:00)
[2020-02-08] MEDS ORDERED: SMOF TPN IV SCH (17:00)
[2020-02-08] MEDS ORDERED: AMINO ACID 10% IV SCH (17:00)
[2020-02-08] MEDS ORDERED: FAT EMUL IV SCH (17:00)
[2020-02-08] MEDS: FILTER, DISP 1.2 MICRON FOR TPN/PVN IV PRN (17:33)
[2020-02-09] MEDS ORDERED: VANCOMYCIN 1,300 MG in SODIUM CHLORIDE 0.9% 250 ML IV ONE (01:00)
[2020-02-09] MEDS: HYDROmorphone 1 MG/ML, 1ML INJ IV PRN ×2 (02:39→13:47)
[2020-02-09] MEDS: PIPERACILLIN/TAZO/PMX 3.375GM 50 ML IV SCH ×4 (02:39→20:03)
[2020-02-09] MEDS: ACETAMINOPHEN 650 MG/20.3 ML UDC PO/NG PRN ×3 (02:40→18:03)
[2020-02-09 03:49] LABS: BASOPHILS % (AUTO) 1 % (0-1); EOSINOPHILS % (AUTO) 1 % (1-7); LYMPHOCYTES % (AUTO) 5 % (22-44); MEAN CORPUSCULAR HEMOGLOBIN 29.4 pg (27.0-34.8); MEAN CORPUSCULAR HGB CONC 33.1 g/dL (32.4-35.8); MEAN PLATELET VOLUME 9.6 fL (7.4-10.4); MONOCYTES % (AUTO) 7 % (2-9); NEUTROPHILS % (AUTO) 87 % (42-75); PLATELET COUNT 156 x10^3/uL (130-400); RED BLOOD COUNT 2.55 x10^6/uL (3.82-5.3); RED CELL DISTRIBUTION WIDTH 15.6 % (9.6-15.2)
[2020-02-09 03:59] LABS: ANION GAP 3 mmol/L (5-15); CALCIUM 8.1 mg/dL (8.5-10.1); CHLORIDE 107 mmol/L (98-107); CREATININE 0.66 mg/dL (0.55-1.02)
[2020-02-09 04:28] LABS: MD SCAN
[2020-02-09] MEDS: FENTANYL PF 2,500 MCG in SODIUM CHLORIDE 0.9% 200 ML IV SCH ×2 (04:38→22:39)
[2020-02-09] MEDS: PANTOPRAZOLE 40 MG IV IVPush SCH (05:20)
[2020-02-09] MEDS: INSULIN REGULAR MEDIUM DOSE QDAY SQ-INSULIN SCH (08:55)
[2020-02-09] MEDS: VANCOMYCIN 1,300 MG in SODIUM CHLORIDE 0.9% 250 ML IV SCH (12:45)
[2020-02-09] MEDS ORDERED: [UNRECOGNIZED DRUG - OTHER] IV SCH (17:00)
[2020-02-09] MEDS ORDERED: AMINO ACID 10% IV SCH (17:00)
[2020-02-09] MEDS ORDERED: FAT EMUL IV SCH (17:00)
[2020-02-09] MEDS ORDERED: DEXTROSE 70% IV SCH (17:00)
[2020-02-09] MEDS ORDERED: SMOF TPN IV SCH (17:00)
[2020-02-09] MEDS: FILTER, DISP 1.2 MICRON FOR TPN/PVN IV PRN (17:55)
[2020-02-09] MEDS ORDERED: VANCOMYCIN 1,300 MG in SODIUM CHLORIDE 0.9% 250 ML IV SCH (18:00)
[2020-02-10] MEDS: HYDROmorphone 1 MG/ML, 1ML INJ IV PRN ×2 (01:18→06:34)
[2020-02-10] MEDS: PIPERACILLIN/TAZO/PMX 3.375GM 50 ML IV SCH ×4 (02:09→20:35)
[2020-02-10] MEDS: ACETAMINOPHEN 650 MG/20.3 ML UDC PO/NG PRN ×3 (02:19→21:38)
[2020-02-10 06:14] LABS: BASOPHILS % (AUTO) 0 % (0-1); EOSINOPHILS % (AUTO) 1 % (1-7); LYMPHOCYTES % (AUTO) 6 % (22-44); MEAN CORPUSCULAR HEMOGLOBIN 29.5 pg (27.0-34.8); MEAN CORPUSCULAR HGB CONC 32.8 g/dL (32.4-35.8); MEAN PLATELET VOLUME 9.8 fL (7.4-10.4); MONOCYTES % (AUTO) 7 % (2-9); NEUTROPHILS % (AUTO) 86 % (42-75); PLATELET COUNT 176 x10^3/uL (130-400); RED BLOOD COUNT 2.39 x10^6/uL (3.82-5.3); RED CELL DISTRIBUTION WIDTH 15.5 % (9.6-15.2)
[2020-02-10 06:19] LABS: INTERNATIONAL NORMALIZED RATIO 1.07 (0.93-1.1); PROTHROMBIN TIME 11.3 Seconds (9.6-11.5)
[2020-02-10] MEDS: PANTOPRAZOLE 40 MG IV IVPush SCH (06:20)
[2020-02-10 06:21] LABS: ALANINE AMINOTRANSFERASE 25 U/L (12-78); ANION GAP 4 mmol/L (5-15); CALCIUM 8.6 mg/dL (8.5-10.1); CHLORIDE 113 mmol/L (98-107); CREATININE 0.64 mg/dL (0.55-1.02)
[2020-02-10] MEDS: VANCOMYCIN 1,300 MG in SODIUM CHLORIDE 0.9% 250 ML IV SCH ×2 (06:21→23:53)
[2020-02-10 06:23] LABS: ALKALINE PHOSPHATASE 83 U/L (45-117); BILIRUBIN,TOTAL 0.5 mg/dL (0.2-1.0); TOTAL PROTEIN 5.8 g/dL (6.4-8.2)
[2020-02-10 07:30] LABS: MD SCAN
[2020-02-10] MEDS: INSULIN REGULAR MEDIUM DOSE QDAY SQ-INSULIN SCH (08:13)
[2020-02-10] MEDS ORDERED: METHADONE INTENSOL 10 MG/ML ORAL CONC PO/NG PRN (10:00)
[2020-02-10] MEDS: FENTANYL PF 2,500 MCG in SODIUM CHLORIDE 0.9% 200 ML IV SCH (11:44)
[2020-02-10] MEDS: FILTER, DISP 1.2 MICRON FOR TPN/PVN IV PRN (16:45)
[2020-02-10] MEDS ORDERED: FAT EMUL IV SCH (17:00)
[2020-02-10] MEDS ORDERED: SMOF TPN IV SCH (17:00)
[2020-02-10] MEDS ORDERED: DEXTROSE 70% IV SCH (17:00)
[2020-02-10] MEDS ORDERED: [UNRECOGNIZED DRUG - OTHER] IV SCH (17:00)
[2020-02-10] MEDS ORDERED: AMINO ACID 10% IV SCH (17:00)
[2020-02-10] MEDS: LABETALOL 5MG/ML, 20ML IVPush PRN (18:39)
[2020-02-11] MEDS: FENTANYL PF 2,500 MCG in SODIUM CHLORIDE 0.9% 200 ML IV SCH ×2 (02:10→15:39)
[2020-02-11] MEDS: LABETALOL 5MG/ML, 20ML IVPush PRN ×4 (02:11→21:19)
[2020-02-11] MEDS: PIPERACILLIN/TAZO/PMX 3.375GM 50 ML IV SCH ×4 (02:31→20:18)
[2020-02-11] MEDS: hydrALAzine 20 MG/ML, 1ML IV PRN ×2 (04:17→18:40)
[2020-02-11 04:30] LABS: MEAN CORPUSCULAR HEMOGLOBIN 29.1 pg (27.0-34.8); MEAN CORPUSCULAR HGB CONC 32.7 g/dL (32.4-35.8); MEAN PLATELET VOLUME 9.6 fL (7.4-10.4); PLATELET COUNT 226 x10^3/uL (130-400); RED BLOOD COUNT 2.66 x10^6/uL (3.82-5.3); RED CELL DISTRIBUTION WIDTH 15.8 % (9.6-15.2)
[2020-02-11 04:33] LABS: CHLORIDE 107 mmol/L (98-107)
[2020-02-11 04:46] LABS: ALANINE AMINOTRANSFERASE 32 U/L (12-78); ALKALINE PHOSPHATASE 97 U/L (45-117); ANION GAP 4 mmol/L (5-15); BILIRUBIN,TOTAL 0.6 mg/dL (0.2-1.0); CALCIUM 8.3 mg/dL (8.5-10.1); CREATININE 0.61 mg/dL (0.55-1.02); PREALBUMIN 9.1 mg/dL (20.0-40.0); TOTAL PROTEIN 6.4 g/dL (6.4-8.2)
[2020-02-11 05:37] LABS: MD YES
[2020-02-11] MEDS: PANTOPRAZOLE 40 MG IV IVPush SCH (05:38)
[2020-02-11 05:39] LABS: BAND#(MANUAL) 0.17 x10^3/uL; BANDS%(MANUAL) 1 % (0-7); EOS#(MANUAL) 0.17 x10^3/uL (0.0-0.4); EOS% (MANUAL) 1 % (1-7); LYMPH#(MANUAL) 0.83 x10^3/uL (1-3.4); LYMPHS% (MANUAL) 5 % (22-44); METAMYELOCYTES# (MANUAL) 0.17 x10^3/uL (0-0); METAMYELOCYTES% (MANUAL) 1 % (0-1); MONOS#(MANUAL) 0.17 x10^3/uL (0.3-2.7); MONOS% (MANUAL) 1 % (2-9); MYELOCYTES# (MANUAL) 0.17 x10^3/uL (0-0); MYELOCYTES% (MANUAL) 1 % (0-0); SEG#(MANUAL) 14.94 x10^3/uL (1.8-6.8); SEGS% (MANUAL) 90 % (42-75)
[2020-02-11 05:41] LABS: <PLATELET ESTIMATE> ADEQUATE; LARGE PLATELETS 1+; OVALOCYTES 1+; POLYCHROMASIA 1+
[2020-02-11] MEDS: INSULIN REGULAR MEDIUM DOSE QDAY SQ-INSULIN SCH (08:08)
[2020-02-11] MEDS: ACETAMINOPHEN 650 MG/20.3 ML UDC PO/NG PRN (09:27)
[2020-02-11] MEDS: LISINOPRIL 20 MG TABLET PO SCH (11:08)
[2020-02-11] MEDS ORDERED: FAT EMUL IV SCH (17:00)
[2020-02-11] MEDS ORDERED: DEXTROSE 70% IV SCH (17:00)
[2020-02-11] MEDS ORDERED: SMOF TPN IV SCH (17:00)
[2020-02-11] MEDS ORDERED: AMINO ACID 10% IV SCH (17:00)
[2020-02-11] MEDS ORDERED: [UNRECOGNIZED DRUG - OTHER] IV SCH (17:00)
[2020-02-11] MEDS: FILTER, DISP 1.2 MICRON FOR TPN/PVN IV PRN (17:20)
[2020-02-11] MEDS ORDERED: METHADONE INTENSOL 10 MG/ML ORAL CONC PO SCH (21:00)
[2020-02-12] MEDS: ACETAMINOPHEN 650 MG/20.3 ML UDC PO/NG PRN (00:13)
[2020-02-12] MEDS: hydrALAzine 20 MG/ML, 1ML IV PRN (00:13)
[2020-02-12] MEDS: PIPERACILLIN/TAZO/PMX 3.375GM 50 ML IV SCH ×4 (02:18→20:37)
[2020-02-12 05:20] LABS: MEAN CORPUSCULAR HEMOGLOBIN 29.1 pg (27.0-34.8); MEAN CORPUSCULAR HGB CONC 32.9 g/dL (32.4-35.8); MEAN PLATELET VOLUME 9.6 fL (7.4-10.4); PLATELET COUNT 254 x10^3/uL (130-400); RED BLOOD COUNT 2.66 x10^6/uL (3.82-5.3); RED CELL DISTRIBUTION WIDTH 15.6 % (9.6-15.2)
[2020-02-12 05:33] LABS: ANION GAP 6 mmol/L (5-15); CALCIUM 8.5 mg/dL (8.5-10.1); CHLORIDE 110 mmol/L (98-107)
[2020-02-12 05:34] LABS: CREATININE 0.63 mg/dL (0.55-1.02)
[2020-02-12] MEDS: LABETALOL 5MG/ML, 20ML IVPush PRN ×2 (05:36→22:00)
[2020-02-12] MEDS: PANTOPRAZOLE 40 MG IV IVPush SCH (05:36)
[2020-02-12 06:01] LABS: MD YES
[2020-02-12 06:02] LABS: BAND#(MANUAL) 0.16 x10^3/uL; BANDS%(MANUAL) 1 % (0-7); METAMYELOCYTES# (MANUAL) 0.33 x10^3/uL (0-0); METAMYELOCYTES% (MANUAL) 2 % (0-1); REACTIVE LYMPHS # (MANUAL) 0.16 x10^3/uL (0-0); REACTIVE LYMPHS % (MANUAL) 1 % (0-0)
[2020-02-12 06:03] LABS: ANISOCYTOSIS 1+; LYMPH#(MANUAL) 1.79 x10^3/uL (1-3.4); LYMPHS% (MANUAL) 11 % (22-44); MONOS% (MANUAL) 8 % (2-9); POLYCHROMASIA 1+; SEG#(MANUAL) 12.55 x10^3/uL (1.8-6.8); SEGS% (MANUAL) 77 % (42-75)
[2020-02-12 06:04] LABS: <PLATELET ESTIMATE> ADEQUATE; <PLT MORPHOLOGY> NORMAL PLT MORPH
[2020-02-12] MEDS ORDERED: POTASSIUM CHLORIDE 20 MEQ TAB.ER.PRT PO ONE (07:30)
[2020-02-12] MEDS: METHADONE 10 MG TABLET PO SCH ×2 (08:24→20:39)
[2020-02-12] MEDS: INSULIN REGULAR MEDIUM DOSE QDAY SQ-INSULIN SCH (08:24)
[2020-02-12] MEDS: LISINOPRIL 20 MG TABLET PO SCH (08:25)
[2020-02-12] MEDS: FLUCONAZOLE 200 MG TABLET PO SCH (08:25)
[2020-02-12] MEDS ORDERED: DEXTROSE 70% IV SCH (17:00)
[2020-02-12] MEDS ORDERED: SMOF TPN IV SCH (17:00)
[2020-02-12] MEDS ORDERED: FAT EMUL IV SCH (17:00)
[2020-02-12] MEDS ORDERED: [UNRECOGNIZED DRUG - OTHER] IV SCH (17:00)
[2020-02-12] MEDS ORDERED: AMINO ACID 10% IV SCH (17:00)
[2020-02-12] MEDS: LOVASTATIN 20 MG TABLET PO SCH (20:38)
[2020-02-12] MEDS: GEMFIBROZIL 600 MG TABLET PO SCH (20:38)
[2020-02-13 02:09] VITALS: BP 155/82
[2020-02-13] MEDS: PIPERACILLIN/TAZO/PMX 3.375GM 50 ML IV SCH ×4 (02:21→20:07)
[2020-02-13] MEDS: PANTOPRAZOLE 40MG TABLET PO SCH (06:17)
[2020-02-13 06:40] LABS: MEAN CORPUSCULAR HEMOGLOBIN 28.6 pg (27.0-34.8); MEAN CORPUSCULAR HGB CONC 32.4 g/dL (32.4-35.8); MEAN PLATELET VOLUME 9.6 fL (7.4-10.4); PLATELET COUNT 325 x10^3/uL (130-400); RED BLOOD COUNT 2.57 x10^6/uL (3.82-5.3); RED CELL DISTRIBUTION WIDTH 15.6 % (9.6-15.2)
[2020-02-13 07:11] LABS: MD YES
[2020-02-13 07:12] LABS: <PLATELET ESTIMATE> ADEQUATE; <PLT MORPHOLOGY> NORMAL PLT MORPH; ANISOCYTOSIS 1+; BAND#(MANUAL) 0.54 x10^3/uL; BANDS%(MANUAL) 3 % (0-7); EOS#(MANUAL) 0.36 x10^3/uL (0.0-0.4); EOS% (MANUAL) 2 % (1-7); LYMPH#(MANUAL) 1.27 x10^3/uL (1-3.4); LYMPHS% (MANUAL) 7 % (22-44); MONOS#(MANUAL) 1.09 x10^3/uL (0.3-2.7); MONOS% (MANUAL) 6 % (2-9); POLYCHROMASIA 1+; SEG#(MANUAL) 14.84 x10^3/uL (1.8-6.8); SEGS% (MANUAL) 82 % (42-75)
[2020-02-13 07:15] LABS: TEAR DROPS 1+
[2020-02-13 08:12] VITALS: BP 166/82
[2020-02-13] MEDS: FLUCONAZOLE 200 MG TABLET PO SCH (09:03)
[2020-02-13] MEDS: METHADONE 10 MG TABLET PO SCH ×2 (09:03→20:08)
[2020-02-13] MEDS: GEMFIBROZIL 600 MG TABLET PO SCH ×2 (09:03→20:08)
[2020-02-13] MEDS: LISINOPRIL 20 MG TABLET PO SCH (09:03)
[2020-02-13] MEDS: INSULIN REGULAR MEDIUM DOSE QDAY SQ-INSULIN SCH (09:10)
[2020-02-13 11:04] LABS: CLOSTRIDIUM DIFFICILE ANTIGEN NEGATIVE; CLOSTRIDIUM DIFFICILE TOXIN NEGATIVE (Negative)
[2020-02-13 12:34] VITALS: BP 154/77
[2020-02-13 19:07] VITALS: BP 165/87
[2020-02-13] MEDS: LOVASTATIN 20 MG TABLET PO SCH (20:08)
[2020-02-14] VITALS (7 sets, daily range): BP systolic 120–163; BP diastolic 58–82
[2020-02-14] MEDS: PIPERACILLIN/TAZO/PMX 3.375GM 50 ML IV SCH ×4 (02:43→20:09)
[2020-02-14 05:08] LABS: MEAN CORPUSCULAR HEMOGLOBIN 29.3 pg (27.0-34.8); MEAN CORPUSCULAR HGB CONC 33.2 g/dL (32.4-35.8); MEAN PLATELET VOLUME 9.1 fL (7.4-10.4); PLATELET COUNT 339 x10^3/uL (130-400); RED CELL DISTRIBUTION WIDTH 15.6 % (9.6-15.2)
[2020-02-14 05:16] LABS: ALBUMIN 1.9 g/dL (3.4-5.0); ANION GAP 8 mmol/L (5-15); CALCIUM 8.7 mg/dL (8.5-10.1); CHLORIDE 107 mmol/L (98-107)
[2020-02-14 05:23] LABS: ALANINE AMINOTRANSFERASE 23 U/L (12-78); ALKALINE PHOSPHATASE 86 U/L (45-117); BILIRUBIN,TOTAL 0.6 mg/dL (0.2-1.0); CREATININE 0.81 mg/dL (0.55-1.02); TOTAL PROTEIN 6.1 g/dL (6.4-8.2)
[2020-02-14 06:08] LABS: MD YES
[2020-02-14 06:10] LABS: ANISOCYTOSIS 1+; BAND#(MANUAL) 0.31 x10^3/uL; BANDS%(MANUAL) 2 % (0-7); EOS#(MANUAL) 0.31 x10^3/uL (0.0-0.4); EOS% (MANUAL) 2 % (1-7); LYMPH#(MANUAL) 2.33 x10^3/uL (1-3.4); LYMPHS% (MANUAL) 15 % (22-44); MONOS#(MANUAL) 0.78 x10^3/uL (0.3-2.7); MONOS% (MANUAL) 5 % (2-9); POLYCHROMASIA 1+; SEG#(MANUAL) 11.78 x10^3/uL (1.8-6.8); SEGS% (MANUAL) 76 % (42-75)
[2020-02-14 06:11] LABS: <PLATELET ESTIMATE> ADEQUATE; <PLT MORPHOLOGY> NORMAL PLT MORPH
[2020-02-14] MEDS: PANTOPRAZOLE 40MG TABLET PO SCH (06:14)
[2020-02-14] MEDS: METHADONE 10 MG TABLET PO SCH ×2 (07:51→20:09)
[2020-02-14] MEDS: FLUCONAZOLE 200 MG TABLET PO SCH (07:51)
[2020-02-14] MEDS: GEMFIBROZIL 600 MG TABLET PO SCH ×2 (07:51→20:09)
[2020-02-14] MEDS: LISINOPRIL 20 MG TABLET PO SCH (07:51)
[2020-02-14] MEDS: ACETAMINOPHEN 650 MG/20.3 ML UDC PO/NG PRN (09:15)
[2020-02-14] MEDS: FUROSEMIDE 20 MG/2 ML IV SCH ×4 (14:32→22:54)
[2020-02-14] MEDS ORDERED: POTASSIUM CHLORIDE 20 MEQ TAB.ER.PRT PO ONE ×2 (15:00→17:00)
[2020-02-14 15:21] LABS: MEAN CORPUSCULAR HEMOGLOBIN 29.1 pg (27.0-34.8); MEAN CORPUSCULAR HGB CONC 33.1 g/dL (32.4-35.8); MEAN PLATELET VOLUME 8.8 fL (7.4-10.4); PLATELET COUNT 355 x10^3/uL (130-400); RED BLOOD COUNT 2.97 x10^6/uL (3.82-5.3)
[2020-02-14 15:23] LABS: MD YES
[2020-02-14 15:29] LABS: % IRON SATURATION 19 % (20-55); IRON LEVEL 38 mcg/dL (50-170); TOTAL IRON BINDING CAPACITY 202 mcg/dL (250-450)
[2020-02-14 15:49] LABS: BAND#(MANUAL) 0.32 x10^3/uL; BANDS%(MANUAL) 2 % (0-7); EOS#(MANUAL) 0.16 x10^3/uL (0.0-0.4); EOS% (MANUAL) 1 % (1-7); LYMPH#(MANUAL) 2.53 x10^3/uL (1-3.4); LYMPHS% (MANUAL) 16 % (22-44); MONOS#(MANUAL) 1.11 x10^3/uL (0.3-2.7); MONOS% (MANUAL) 7 % (2-9); REACTIVE LYMPHS # (MANUAL) 0.16 x10^3/uL (0-0); REACTIVE LYMPHS % (MANUAL) 1 % (0-0); SEG#(MANUAL) 11.53 x10^3/uL (1.8-6.8); SEGS% (MANUAL) 73 % (42-75)
[2020-02-14 15:50] LABS: ANISOCYTOSIS 1+; POLYCHROMASIA 1+
[2020-02-14 15:51] LABS: <PLATELET ESTIMATE> ADEQUATE; <PLT MORPHOLOGY> NORMAL PLT MORPH
[2020-02-14] MEDS: LOVASTATIN 20 MG TABLET PO SCH (20:08)
[2020-02-14] MEDS: METHADONE INTENSOL 10 MG/ML ORAL CONC PO SCH (20:26)
[2020-02-14] MEDS: NICOTINE 14MG/24 HR PATCH.TD24 TD SCH (22:46)
[2020-02-15 00:48] VITALS: BP 130/77
[2020-02-15] MEDS: PIPERACILLIN/TAZO/PMX 3.375GM 50 ML IV SCH ×4 (02:24→20:28)
[2020-02-15 05:28] LABS: ANION GAP 5 mmol/L (5-15); CALCIUM 8.6 mg/dL (8.5-10.1); CHLORIDE 99 mmol/L (98-107); CREATININE 0.88 mg/dL (0.55-1.02)
[2020-02-15 05:29] LABS: MEAN CORPUSCULAR HEMOGLOBIN 29.4 pg (27.0-34.8); MEAN CORPUSCULAR HGB CONC 33.5 g/dL (32.4-35.8); MEAN PLATELET VOLUME 8.9 fL (7.4-10.4); PLATELET COUNT 378 x10^3/uL (130-400); RED BLOOD COUNT 3.03 x10^6/uL (3.82-5.3); RED CELL DISTRIBUTION WIDTH 15.7 % (9.6-15.2)
[2020-02-15] MEDS: PANTOPRAZOLE 40MG TABLET PO SCH (05:41)
[2020-02-15 06:12] LABS: MD YES
[2020-02-15 06:13] LABS: <PLATELET ESTIMATE> ADEQUATE; <PLT MORPHOLOGY> NORMAL PLT MORPH; ANISOCYTOSIS 1+; BAND#(MANUAL) 0.17 x10^3/uL; BANDS%(MANUAL) 1 % (0-7); EOS#(MANUAL) 0.17 x10^3/uL (0.0-0.4); EOS% (MANUAL) 1 % (1-7); LYMPH#(MANUAL) 3.98 x10^3/uL (1-3.4); LYMPHS% (MANUAL) 23 % (22-44); METAMYELOCYTES# (MANUAL) 0.17 x10^3/uL (0-0); METAMYELOCYTES% (MANUAL) 1 % (0-1); MONOS#(MANUAL) 0.69 x10^3/uL (0.3-2.7); MONOS% (MANUAL) 4 % (2-9); MYELOCYTES# (MANUAL) 0.35 x10^3/uL (0-0); MYELOCYTES% (MANUAL) 2 % (0-0); POLYCHROMASIA 1+; SEG#(MANUAL) 11.76 x10^3/uL (1.8-6.8); SEGS% (MANUAL) 68 % (42-75)
[2020-02-15 07:17] VITALS: BP 121/74
[2020-02-15] MEDS ORDERED: METHADONE 10 MG TABLET ONE (08:34)
[2020-02-15] MEDS: GEMFIBROZIL 600 MG TABLET PO SCH ×2 (09:00→20:29)
[2020-02-15] MEDS: LISINOPRIL 20 MG TABLET PO SCH (09:00)
[2020-02-15] MEDS: METHADONE INTENSOL 10 MG/ML ORAL CONC PO SCH ×2 (10:05→20:48)
[2020-02-15 10:29] LABS: OCCULT BLOOD NEGATIVE (NEGATIVE)
[2020-02-15 12:43] VITALS: BP 145/93
[2020-02-15 18:43] VITALS: BP 128/69
[2020-02-15 19:13] LABS: OCCULT BLOOD NEGATIVE (NEGATIVE)
[2020-02-15] MEDS: LOVASTATIN 20 MG TABLET PO SCH (20:29)
[2020-02-15] MEDS: NICOTINE 14MG/24 HR PATCH.TD24 TD SCH (23:30)
[2020-02-16 01:22] VITALS: BP 123/70
[2020-02-16] MEDS: PIPERACILLIN/TAZO/PMX 3.375GM 50 ML IV SCH ×2 (02:09→09:50)
[2020-02-16] MEDS: PANTOPRAZOLE 40MG TABLET PO SCH (05:28)
[2020-02-16 06:36] VITALS: BP 111/68
[2020-02-16] MEDS: GEMFIBROZIL 600 MG TABLET PO SCH ×2 (09:50→21:49)
[2020-02-16] MEDS: LISINOPRIL 20 MG TABLET PO SCH (09:50)
[2020-02-16] MEDS: METHADONE INTENSOL 10 MG/ML ORAL CONC PO SCH ×2 (09:58→21:49)
[2020-02-16 12:06] VITALS: BP 120/72
[2020-02-16 13:09] LABS: MEAN CORPUSCULAR HEMOGLOBIN 28.7 pg (27.0-34.8); MEAN CORPUSCULAR HGB CONC 32.6 g/dL (32.4-35.8); MEAN PLATELET VOLUME 8.5 fL (7.4-10.4); PLATELET COUNT 413 x10^3/uL (130-400); RED BLOOD COUNT 3.12 x10^6/uL (3.82-5.3); RED CELL DISTRIBUTION WIDTH 15.7 % (9.6-15.2)
[2020-02-16 13:33] LABS: MD YES
[2020-02-16 13:35] LABS: <PLATELET ESTIMATE> ADEQUATE; <PLT MORPHOLOGY> NORMAL PLT MORPH; ANISOCYTOSIS 1+; BAND#(MANUAL) 0.31 x10^3/uL; BANDS%(MANUAL) 2 % (0-7); EOS#(MANUAL) 0.16 x10^3/uL (0.0-0.4); EOS% (MANUAL) 1 % (1-7); LYMPH#(MANUAL) 3.43 x10^3/uL (1-3.4); LYMPHS% (MANUAL) 22 % (22-44); METAMYELOCYTES# (MANUAL) 0.16 x10^3/uL (0-0); METAMYELOCYTES% (MANUAL) 1 % (0-1); MONOS#(MANUAL) 0.31 x10^3/uL (0.3-2.7); MONOS% (MANUAL) 2 % (2-9); POLYCHROMASIA 1+; SEG#(MANUAL) 11.23 x10^3/uL (1.8-6.8); SEGS% (MANUAL) 72 % (42-75)
[2020-02-16 18:53] VITALS: BP 134/67
[2020-02-16] MEDS ORDERED: METHADONE 10 MG TABLET ONE (20:27)
[2020-02-16] MEDS: NICOTINE 14MG/24 HR PATCH.TD24 TD SCH (21:49)
[2020-02-16] MEDS: LOVASTATIN 20 MG TABLET PO SCH (21:49)
[2020-02-17 00:37] VITALS: BP 127/69
[2020-02-17] MEDS: PANTOPRAZOLE 40MG TABLET PO SCH (04:50)
[2020-02-17 05:14] LABS: BASOPHILS % (AUTO) 1 % (0-1); EOSINOPHILS % (AUTO) 1 % (1-7); LYMPHOCYTES % (AUTO) 22 % (22-44); MEAN CORPUSCULAR HGB CONC 32.9 g/dL (32.4-35.8); MEAN PLATELET VOLUME 8.3 fL (7.4-10.4); MONOCYTES % (AUTO) 11 % (2-9); NEUTROPHILS % (AUTO) 65 % (42-75); PLATELET COUNT 394 x10^3/uL (130-400); RED BLOOD COUNT 2.97 x10^6/uL (3.82-5.3); RED CELL DISTRIBUTION WIDTH 15.7 % (9.6-15.2)
[2020-02-17 05:19] LABS: ALBUMIN 2.1 g/dL (3.4-5.0); ANION GAP 7 mmol/L (5-15); CALCIUM 9.1 mg/dL (8.5-10.1); CHLORIDE 105 mmol/L (98-107); CREATININE 0.73 mg/dL (0.55-1.02)
[2020-02-17 05:24] LABS: MD NO
[2020-02-17 06:33] VITALS: BP 151/75
[2020-02-17] MEDS ORDERED: METHADONE 10 MG TABLET ONE (07:13)
[2020-02-17] MEDS: GEMFIBROZIL 600 MG TABLET PO SCH ×2 (07:16→20:44)
[2020-02-17] MEDS: LISINOPRIL 20 MG TABLET PO SCH (07:16)
[2020-02-17] MEDS: METHADONE INTENSOL 10 MG/ML ORAL CONC PO SCH ×2 (09:37→20:44)
[2020-02-17 14:50] VITALS: BP 154/79
[2020-02-17 19:31] VITALS: BP 154/74
[2020-02-17] MEDS: LOVASTATIN 20 MG TABLET PO SCH (20:44)
[2020-02-17] MEDS: NICOTINE 14MG/24 HR PATCH.TD24 TD SCH (21:02)
[2020-02-18 02:04] VITALS: BP 128/72
[2020-02-18] MEDS: PANTOPRAZOLE 40MG TABLET PO SCH (05:08)
[2020-02-18 06:30] VITALS: BP 129/76
[2020-02-18] MEDS: METHADONE INTENSOL 10 MG/ML ORAL CONC PO SCH (08:19)
[2020-02-18] MEDS: LISINOPRIL 20 MG TABLET PO SCH (08:19)
[2020-02-18] MEDS: GEMFIBROZIL 600 MG TABLET PO SCH (08:19)
[2020-02-18] MEDS ORDERED: VIT1CAPS PO (09:31)
[2020-02-18] MEDS ORDERED: IRON1TAB37 PO (09:31)
[2020-02-18 12:09] VITALS: BP 111/71
[2020-02-18] MEDS ORDERED: LEVO750T6 PO (12:17)
== END 2020-02-18 16:33 | disposition home health service (06) | DRG 870 ==
LOC: ED 23:17 → EDIP 02-01 01:31 → 4NW 02-01 18:19 → CCU 02-02 13:30 → 4NW 02-12 22:18
PROVIDERS: ADMIT Family Medicine; ATTEND Family Medicine
PROC: 02HV33Z Insertion of Infusion Device into Superior Vena Cava, Percutaneous Approach (ICD-10-PCS; principal; 2020-02-01)
PROC: 06HY33Z Insertion of Infusion Device into Lower Vein, Percutaneous Approach (ICD-10-PCS; 2020-02-01)
PROC: 5A1955Z Respiratory Ventilation, Greater than 96 Consecutive Hours (ICD-10-PCS; 2020-02-02)
PROC: 0BH17EZ Insertion of Endotracheal Airway into Trachea, Via Natural or Artificial Opening (ICD-10-PCS; 2020-02-02)
PROC: 0T9B30Z Drainage of Bladder with Drainage Device, Percutaneous Approach (ICD-10-PCS; 2020-02-03)
PROC: 02HV33Z Insertion of Infusion Device into Superior Vena Cava, Percutaneous Approach (ICD-10-PCS; 2020-02-06)
PROC: B548ZZA Ultrasonography of Superior Vena Cava, Guidance (ICD-10-PCS; 2020-02-06)
DX: A41.9 Sepsis, unspecified organism (principal); G93.41 Metabolic encephalopathy; J18.9 Pneumonia, unspecified organism; J96.01 Acute respiratory failure with hypoxia; K65.0 Generalized (acute) peritonitis; K85.10 Biliary acute pancreatitis without necrosis or infection; E87.2 Acidosis; J44.0 Chronic obstructive pulmonary disease with (acute) lower respiratory infection; J81.1 Chronic pulmonary edema; J90 Pleural effusion, not elsewhere classified; J98.11 Atelectasis; N17.9 Acute kidney failure, unspecified; R18.8 Other ascites; Z99.11 Dependence on respirator [ventilator] status; Z20.828 Contact with and (suspected) exposure to other viral communicable diseases; B18.2 Chronic viral hepatitis C; D49.0 Neoplasm of unspecified behavior of digestive system; D63.8 Anemia in other chronic diseases classified elsewhere; E16.2 Hypoglycemia, unspecified; E78.5 Hyperlipidemia, unspecified; E83.42 Hypomagnesemia; E87.6 Hypokalemia; F17.210 Nicotine dependence, cigarettes, uncomplicated; G89.29 Other chronic pain; I10 Essential (primary) hypertension; K59.00 Constipation, unspecified; K86.89 Other specified diseases of pancreas; Y84.8 Other medical procedures as the cause of abnormal reaction of the patient, or of later complication, without mention of misadventure at the time of the procedure; F41.9 Anxiety disorder, unspecified; I95.9 Hypotension, unspecified; Z79.899 Other long term (current) drug therapy; Z90.49 Acquired absence of other specified parts of digestive tract; D72.829 Elevated white blood cell count, unspecified
CPT/HCPCS: 36415; 36600; 74018; 87106; 96374; 99285; J3475; J7121; 36573; 71045; 71260; 74177; 76700; 80048; 80053; 80061; 80069; 80202; 81001; 82272; 82533; 82803; 82962; 83540; 83550; 83605; 83690; 83735; 83880; 84100; 84134; 84478; 84484; 85025; 85379; 85610; 86140; 86850; 86900; 86923; 87040; 87070; 87081; 87086; 87205; 87324; 87635; 93005; 93306; 94002; 94003; 94150; G0378; J0610; J1170; J1644; J1650; J1815; J1940; J2185; J2310; J2405; J2543; J2704; J3010; J3370; J3480; J7030; J7070; P9047; Q9967; C1751; C9113; J0330; J0360; J2060; J2270; J3420; J7040; J7050; J7120; P9016; U0003

== ENCOUNTER 2020-02-26 21:41 | Emergency (ER) | payer OTHER ==
[~2020-02-26] VITALS: Ht 147.3 cm; Wt 45.0 kg
[~2020-02-26 21:41] MED LIST changes: +IRON1TAB37 PO; +LEVO750T6 PO; +VIT1CAPS PO
[2020-02-26 22:47] VITALS: BP 105/62
== END 2020-02-26 22:51 | disposition home or self-care (01) ==
LOC: ED 22:11
DX: J18.9 Pneumonia, unspecified organism (principal); R06.02 Shortness of breath; R05 Cough; R06.00 Dyspnea, unspecified
CPT/HCPCS: 71045; 93005; 99283

== ENCOUNTER 2020-08-05 08:58 | Day surgery (SDC) | payer OTHER ==
[2020-08-04 12:24] LABS: ALBUMIN 3.6 g/dL (3.4-5.0); ANION GAP 5 mmol/L (5-15); CALCIUM 10.6 mg/dL (8.5-10.1); CHLORIDE 105 mmol/L (98-107)
[2020-08-04 12:29] LABS: ALANINE AMINOTRANSFERASE 24 U/L (12-78); ALKALINE PHOSPHATASE 117 U/L (45-117); BILIRUBIN,TOTAL 0.2 mg/dL (0.2-1.0); CREATININE 0.83 mg/dL (0.55-1.02)
[~2020-08-05] VITALS: Ht 147.3 cm; Wt 50.4 kg
[~2020-08-05 08:58] MED LIST changes: -ALPR0.5T6 PO; +ALPR0.5T93 PO; +DICY10CA3 PO; +GEMF-31 PO; -GEMF600T8 PO; +LOVA10TA PO
[2020-08-05] MEDS ORDERED: LACTATED RINGERS 1,000 ML IV SCH (09:30)
[2020-08-05] MEDS ORDERED: CHLORHEXIDINE 15 ML UDC PO ONE (09:30)
[2020-08-05 09:52] VITALS: BP 107/75
[2020-08-05] MEDS ORDERED: PROPOFOL 50 ML ONE (10:12)
[2020-08-05] MEDS ORDERED: FENTANYL PF 100 MCG/2ML IV PRN (10:30)
[2020-08-05] MEDS ORDERED: ONDANSETRON 2MG/ML, 2ML IVPush PRN (10:30)
[2020-08-05] MEDS ORDERED: ACETAMINOPHEN 325 MG TABLET PO PRN (10:30)
== END 2020-08-05 12:35 | disposition home or self-care (01) ==
LOC: OUT 08:58 → EDSTATUS 11:15 → OUT 12:35
PROVIDERS: ATTEND Internal Medicine Geriatric Medicine
DX: R93.5 Abnormal findings on diagnostic imaging of other abdominal regions, including retroperitoneum (principal); K29.50 Unspecified chronic gastritis without bleeding; K86.89 Other specified diseases of pancreas; K83.8 Other specified diseases of biliary tract; K21.9 Gastro-esophageal reflux disease without esophagitis; I10 Essential (primary) hypertension; F17.210 Nicotine dependence, cigarettes, uncomplicated; Z20.822 Contact with and (suspected) exposure to COVID-19; Z79.899 Other long term (current) drug therapy; Z88.1 Allergy status to other antibiotic agents
CPT/HCPCS: 36415; 43239; 43259; 80053; 88305; 93005; J2704; J7120; U0003; U0005